=== PATIENT | male | born 1975 | race African-American/Black ===

== ENCOUNTER 2016-10-13 18:24 | Emergency (ER) | payer SELFPAY ==
[~2016-10-13] VITALS: Ht 177.8 cm; Wt 122.5 kg
[~2016-10-13 18:24] MED LIST: NO HOME MEDS
[2016-10-13 18:43] VITALS: BP 126/95
== END 2016-10-13 20:55 | disposition home or self-care (01) ==
LOC: ER 18:30
DX: J45.909 Unspecified asthma, uncomplicated (principal); H61.23 Impacted cerumen, bilateral; L03.211 Cellulitis of face

== ENCOUNTER 2018-07-12 13:36 | Emergency (ER) | payer SELFPAY ==
[~2018-07-12] VITALS: Ht 170.2 cm; Wt 122.5 kg
[2018-07-12 13:55] VITALS: BP 158/102
== END 2018-07-12 14:50 | disposition left against medical advice (07) ==
LOC: ER 13:52
DX: R51 Headache (principal); Z53.21 Procedure and treatment not carried out due to patient leaving prior to being seen by health care provider; V49.49XA Driver injured in collision with other motor vehicles in traffic accident, initial encounter; Y93.89 Activity, other specified; Y99.8 Other external cause status; Y92.410 Unspecified street and highway as the place of occurrence of the external cause

== ENCOUNTER 2019-02-24 16:50 | Emergency (ER) | payer MEDICAID ==
[~2019-02-24] VITALS: Ht 177.8 cm; Wt 127.0 kg
[2019-02-24 18:55] VITALS: BP 131/89
[2019-02-24] MEDS ORDERED: ACETAMINOPHEN/CODEINE#3 (300/30mg) TAB PO ONE (19:15)
[2019-02-24] MEDS ORDERED: IBUPROFEN 600 MG TAB PO ONE (19:15)
== END 2019-02-24 19:53 | disposition home or self-care (01) ==
LOC: ER 16:52
DX: S92.502A Displaced unspecified fracture of left lesser toe(s), initial encounter for closed fracture (principal); S66.912A Strain of unspecified muscle, fascia and tendon at wrist and hand level, left hand, initial encounter; J45.909 Unspecified asthma, uncomplicated; Y04.0XXA Assault by unarmed brawl or fight, initial encounter; Y93.89 Activity, other specified; Y92.89 Other specified places as the place of occurrence of the external cause; Y99.8 Other external cause status
CPT/HCPCS: 73110; 73630; 99283; L3260